=== PATIENT | female | born 1980 | race Two or more races ===

== ENCOUNTER 2023-08-01 09:35 | Outpatient (AMB) | payer OTHER, SELFPAY ==
--- NOTE | 2023-08-01 09:33 | MHC.OFFWIV ---
Intake Vital Signs 08/01/23 09:38 Height 5 ft 6 in Weight 192 lb BMI 31.0 BP 122/80 Blood Pressure Location Lt brachial Position Sitting Pulse 95 Pulse Source Pulse Oximeter Temp 97.9 F Temp Source Oral Pulse Oximetry (%) 99 Oxygen Delivery Method Room Air Intake Visit Reasons: [employer] Ear ache ?Infection in both Intake Note: pt is here today for ear ache. She states her left ear started to hurt on friday and her right ear started to hurt yesterday. She also states it feels clogged. Patient Tobacco Use Status: Current everyday Tobacco user Allergies No Known Allergies Allergy (Verified 08/01/23 09:42) HPI [employer] Ear ache ?Infection in both HPI Details 42-year-old female patient presents today with bilateral ear pain. States she has had left inner ear pain/pressure for the last 3 days, and similar symptoms in the right ear starting yesterday. Denies fever or chills. Denies any recent illness. Denies any frequent ear infections. Denies any other complaints today. [facility] Social History Patient Tobacco Use Status: Current everyday Tobacco user Cigarettes Per Day: 10 Substance Use Type: Marijuana Review of Systems Const All systems reviewed & are unremarkable except as noted in HPI and below Physical Exam Vital Signs: Last Vital Signs Temp 97.9 F 08/01/23 09:38 Pulse 95 08/01/23 09:38 BP 122/80 08/01/23 09:38 Pulse Ox 99 08/01/23 09:38 Oxygen Delivery Method Room Air 08/01/23 09:38 BMI result Body Mass Index 31.0 Const General: cooperative and no acute distress HEENT Head: Yes normal to inspection Ears: external ears normal, EAC's normal and TM abnormal (b/l bulging, erythema) General nose exam: Normal external nose present and Normal nasal mucous membranes and turbinates present Throat: Yes posterior oropharynx normal Neck Neck: Yes no lymphadenopathy Resp Effort & Inspection: normal respiratory effort Auscultation: clear to auscultation bilaterally Cardio Rate: regular rate Rhythm: regular rhythm Skin General skin exam: no rashes or lesions noted Extrem General: Yes capillary refill normal and Yes no clubbing, cyanosis or edema Psych Appearance: grossly normal Mental Status: mental status grossly normal Speech and movement: Normal speech and movement present Assessment & Plan Assessment & Plan (1) Bilateral otitis media: Code(s): H66.93 - Otitis media, unspecified, bilateral Qualifiers: Otitis media type: suppurative Chronicity: acute Recurrence: non-recurrent Spontaneous tympanic membrane rupture: without spontaneous rupture Qualified Code(s): H66.003 - Acute suppurative otitis media without spontaneous rupture of ear drum, bilateral Plan: Augmentin BID 10 days for bilateral OM. Reviewed indications, use, possible s/e of medication. Advised Tylenol/Motrin for symptom management. If she does not improve with treatment she can return to the clinic for further evaluation. She verbalizes understanding and agrees to plan. Medications: New amoxicillin-pot clavulanate 875-125 mg 1 tab PO BID 10 days 20 tabs 0RF H66.003 - Acute suppurative otitis media without spontaneous rupture of ear drum, bilateral Coding Level of Care Code Est Pt Level 4 (86547) Diagnoses Non-recurrent acute suppurative otitis media of both ears without spontaneous rupture of tympanic membranes H66.003 Otitis media type: suppurative Chronicity: acute Recurrence: non-recurrent Spontaneous tympanic membrane rupture: without spontaneous rupture
[2023-08-01 09:38] VITALS: BP 122/80; PULSE 95; TEMP 36.6; O2SAT 99; BMI 31.0
== END 2023-08-01 09:55 | disposition home or self-care (01) ==
PROVIDERS: Visit Provider Nurse Practitioner Family
DX: H66.003 Acute suppurative otitis media without spontaneous rupture of ear drum, bilateral (principal)
CPT/HCPCS: 99214